=== PATIENT | female | born 1970 | race Hispanic/Latino ===

== ENCOUNTER 2017-04-14 12:00 | Emergency (ER) | payer OTHER ==
[~2017-04-14] VITALS: Ht 162.6 cm; Wt 128.8 kg
[~2017-04-14 12:00] MED LIST: ALBUTEROL SULFAT3 M1 INH; DULERA 100 MCG/13 GM INH; FISH OIL1000 MG PO; GUAIFENESIN-COD10 ML PO; IBUPROFEN800 M1 PO; MEDROL4 M2 PO; MULTIVITAMIN1 TAB PO; NAPROXEN500 MG PO; PREDNISONE 20MG20 MG PO; PREDNISONE20 M1 PO; PROAIR HFA0.09 MG/Ac INH; REGLAN10 M1 PO; ROBITUSSIN W/CO10 ML PO; ULTRACET 325 MG1 TAB PO; VENTOLIN HFA18 GM INH; ZANAFLEX4 MG PO
--- NOTE | 2017-04-14 12:53 | ED DYSPNEA/ASTHMA COMPLAINT ---
History of Present Illness General Chief Complaint: Wheezing/Asthma Stated Complaint: ASTHMA Source: patient Exam Limitations: no limitations Vital Signs & Intake/Output Vital Signs & Intake/Output Vital Signs Date Time Temp Pulse Resp B/P B/P Pulse O2 O2 Flow FiO2 Mean Ox Delivery Rate 04/14 1412 98.3 98 16 136/76 97 Room Air 04/14 1330 98 04/14 1325 97 04/14 1203 97.6 76 127/83 98 Room Air ED Intake and Output 04/15 0000 04/14 1200 Intake Total Output Total Balance Patient 284 lb Weight Weight Reported by Patient Measurement Method Allergies Coded Allergies: NO KNOWN ALLERGIES (09/09/16) Reconcile Medications Albuterol Sulfate (Proair Hfa) 90 MCG HFA.AER.AD 2 PUF INH Q4-6 PRN PRN wheezing Albuterol Sulfate 1.25 MG/3 ML VIAL.NEB 1 Vial INH/RYAN Q4-6 PRN wheezing Albuterol Sulfate (Ventolin Hfa) 18 GM HFA.AER.AD 2 PUF INH Q4-6 PRN PRN WHEEZING/SHORTNESS OF BREATH Ibuprofen 800 MG TABLET 1 TAB PO TID PRN PAIN Ibuprofen 800 MG TABLET 1 TAB PO TID PRN PAIN Methylprednisolone. (Medrol) 4 MG TAB.DS.PK 1 DP PO AD asthma 6 on day 1 then reduce by one tablet daily until gone Mometasone/Formoterol (Dulera 100 Mcg/5 Mcg Inhaler) 100 MCG-5 MCG/ACTUATION HFA.AER.AD 2 PUF INH BID BREATHING PROBLEMS (Reported) Prednisone 20 MG TABLET 2 TAB PO D PHARYNGITIS Robitussin AC (Guaifenesin-Codeine Syrup) 200 MG-20 MG/10 ML LIQUID 10 ML PO Q6 PRN COUGH Triage Note: 46 Y/O FEMALE C/O HOARSE VOICE AND SOB SINCE WAKING THIS MORNING; HX ASTHMA BUT STATES SHE RAN OUT OF HER INHALER; TYPICALLY ABLE TO USE WITH RELIEF. NO RESPIRATORY DISTRESS NOTED, SAT 98% RA AFEBRILE. Triage Nurses Notes Reviewed? yes Onset: Abrupt Duration: day(s):, constant, continues in ED, getting worse (2-3) Timing: single episode today Severity: mild, moderate Activities at Onset: rest Prior Episodes/Possible Cause: frequent episodes Modifying Factors: Worsens With: other (dust, pollen). Associated Symptoms: cough, wheezing LMP (ages 10-50): unknown : No Patient currently breastfeeds: No HPI: 46-year-old female history of asthma presents complaining of worsening wheezing cough and chest tightness for the past 2 days. Patient reports that she usually has an albuterol and 2 layer inhaler that she uses as directed. She ran out of both inhaler several weeks ago and has not been to her doctor to have been refilled. Patient reports symptoms began suddenly while she was outside exposed to dust and pollen. She does not smoke and does not have a rescue inhaler to use at home. No fevers chest pain shortness of breath hemoptysis lower extremity edema history of diabetes history of heart failure history of COPD. Patient reports asthma usually triggered by dust and pollen which is been exposed to. Patient worse this feels very similar to previous asthma exacerbations. Past History Travel History Traveled to [place] past 21 day No Medical History Any Pertinent Medical History? see below for history Neurological: migraine EENT: NONE Cardiovascular: NONE Respiratory: asthma Gastrointestinal: NONE Hepatic: NONE Renal: NONE Musculoskeletal: NONE Psychiatric: NONE Endocrine: hypothyroidism Blood Disorders: NONE Cancer(s): NONE [employer]ING [employer]/Reproductive: UTERINE CYST Surgical History Surgical History: non-contributory Psychosocial History What is your primary language [place] Tobacco Use: Never used Family History Hx Contributory? Yes Review of Systems Review of Systems Constitutional: Reports: no symptoms. EENTM: Reports: no symptoms. Respiratory: Reports: see HPI, cough, wheezing. Cardiovascular: Reports: no symptoms. GI: Reports: no symptoms. Genitourinary: Reports: no symptoms. Musculoskeletal: Reports: no symptoms. Skin: Reports: no symptoms. Neurological/Psychological: Reports: no symptoms. Hematologic/Endocrine: Reports: no symptoms. Immunologic/Allergic: Reports: no symptoms. All Other Systems: Reviewed and Negative Physical Exam Physical Exam General Appearance: well developed/nourished, no apparent distress, alert, awake , anxious, mild distress, obese Head: atraumatic, normal appearance Eyes: Bilateral: normal appearance, PERRL, EOMI. Ears, Nose, Throat: normal pharynx, normal ENT inspection Neck: normal inspection, supple, full range of motion Respiratory: chest non-tender, no respiratory distress, wheezing (improved after duoneb) Cardiovascular: regular rate/rhythm, normal peripheral pulses Peripheral Pulses: 2+ dorsalis pedis (R), 2+ dorsalis pedis (L) Gastrointestinal: normal bowel sounds, soft, non-tender, no organomegaly Extremities: normal inspection, normal capillary refill, normal range of motion, no edema Neurologic/Psych: no motor/sensory deficits, awake, alert, oriented x 3, normal gait, normal mood/affect Skin: intact, normal color, warm/dry Lymphatic: no anterior cervical valerie Core Measures ACS in differential dx? No Severe Sepsis Present: No Septic Shock Present: No Progress Differential Diagnosis: asthma, bronchitis, costochondritis, COPD, pneumonia, pneumothorax, viral URI Plan of Care: Orders Procedure Date/time Status AEROSOL (GEN) 04/14 1341 Complete Patient medicated with DuoNeb and reported significant improvement in symptoms. Patient reevaluated wheezing significantly decreased. No crackles no respiratory distress no rhonchi. No signs of infection. Discharged home with refills for her albuterol inhaler and nebulizer along with a Medrol Dosepak. continue dulara as directed. Patient will then follow up with her primary care doctor this week or return to the ED with any concerns. Discussed plan of care with patient and she is agreeable. She is nontoxic appearing at discharge. (FLORINA GÓMEZ,NADIA) Initial ED EKG: none Departure Departure Disposition: HOME OR SELF CARE Condition: Stable Clinical Impression Primary Impression: Asthma with acute exacerbation in adult Referrals: RAHUL MUNGUIA MD (PCP/Family) Additional Instructions: Rest, drink plenty of fluids. Take Medrol Dosepak as directed for full course. Use albuterol inhaler or nebulizer every 4-6 hours as needed for coughing or wheezing. make A follow-up appt with your primary care doctor this week. Return to emergency Department with any concerns. Departure Forms: Customer Survey General Discharge Information Prescriptions: Current Visit Scripts Albuterol Sulfate (Proair Hfa) 2 PUF INH Q4-6 PRN PRN wheezing #1 INHAL Albuterol Sulfate 1 Vial INH/RYAN Q4-6 PRN wheezing #150 ML Methylprednisolone. (Medrol) 1 DP PO AD #1 DP 6 on day 1 then reduce by one tablet daily until gone Critical Care Note Critical Care Note Critical Care Time: non-applicable
[2017-04-14] MEDS ORDERED: ALBUTEROL1.25 MG/1 INH/SOL (14:03)
[2017-04-14] MEDS ORDERED: PROAIR HFA8.5 GM INH (14:03)
[2017-04-14] MEDS ORDERED: MEDROL4 M2 PO (14:04)
[2017-04-14 14:12] VITALS: BP 136/76
== END 2017-04-14 14:17 ==
LOC: ERH 12:00 → CANBEDREQ 14:13 → ERH 14:17
DX: J45.901 Unspecified asthma with (acute) exacerbation (principal)
CPT/HCPCS: 1263